=== PATIENT | female | born 2000 | race African-American/Black ===

== ENCOUNTER 2023-09-10 08:07 | Emergency (ER) | payer MEDICAID ==
[~2023-09-10] VITALS: Ht 162.6 cm; Wt 77.0 kg
[2023-09-10 08:18] VITALS: O2SAT 100
[2023-09-10] MEDS ORDERED: CEFTRIAXONE SODIUM 500 MG/VIAL IM ONE (08:45)
[2023-09-10 08:55] LABS: CLARITY URINE TURBID (CLEAR); COLOR URINE YELLOW (YELLOW); GLUCOSE URINE NEGATIVE (NEGATIVE); KETONES URINE NEGATIVE (NEGATIVE); LEUKOCYTE ESTERASE URINE 3+ (NEGATIVE); NITRITE URINE NEGATIVE (NEGATIVE); OCCULT BLOOD URINE NEGATIVE (NEGATIVE); PH URINE 5.5 (4.5-8.0); PROTEIN URINE TRACE (NEGATIVE); SPECIFIC GRAVITY URINE 1.028 (1.005-1.030)
[2023-09-10] MEDS ORDERED: IBUPROFEN 600MG TABLET PO ONE (09:00)
[2023-09-10 09:10] LABS: BASOPHILS % 0.1 % (0.0-2.0); EOSINOPHILS % 0.3 % (0.0-5.0); HEMATOCRIT. 35.3 % (36.0-48.0); HEMOGLOBIN. 11.6 g/dL (12.0-16.0); LYMPHOCYTES % 7.1 % (20.0-50.0); MEAN CORPUSCULAR HEMOGLOBIN 29.7 pg (28.0-32.0); MEAN CORPUSCULAR HGB CONC 32.7 g/dL (31.0-37.0); MEAN CORPUSCULAR VOLUME 90.6 fL (81.0-99.0); MEAN PLATELET VOLUME 7.8 fl (7.4-10.4); MONOCYTES % 6.8 % (2.0-8.0); NEUTROPHILS % 85.7 % (40.0-76.0); PLATELET 493 x1000/uL (130-400); RED CELL DISTRIBUTION WIDTH 14.2 % (11.6-14.6); WHITE BLOOD COUNT 17.6 x1000/uL (4.5-11.0)
[2023-09-10 09:18] LABS: CHLORIDE 106 mEq/L (98-107); INDEX HEMOLYSI 1 (1-3); INDEX ICTERIC 1 (1-4); INDEX LIPEMIC 1 (1-3); POTASSIUM 3.3 mEq/L (3.5-5.1); SODIUM 137 mEq/L (136-145)
[2023-09-10 09:20] LABS: BACTERIA URINE 4+; SQUAMOUS EPITHELIAL CELL URINE 3+ /lpf (RARE/1+); WBC URINE 25-50 /hpf (0-2); YEAST URINE NONE SEEN
[2023-09-10 09:22] LABS: HCG SCREEN NEGATIVE
[2023-09-10 10:06] LABS: ALANINE AMINOTRANSFERASE 33 IU/L (13-61); ALBUMIN 3.3 g/dL (3.4-5.0); ASPARTATE AMINOTRANSFERASE 23 IU/L (15-37); BILIRUBIN TOTAL 0.3 mg/dL (0.1-1.0); CARBON DIOXIDE 24 mEq/L (21-32); CREATININE 0.7 mg/dL (0.6-1.3); GLUCOSE 108 mg/dL (70-105); PROTEIN TOTAL 8.5 g/dL (6.0-8.3); UREA NITROGEN BLOOD 7 mg/dL (7-21)
[2023-09-10] MEDS ORDERED: IBUP-2029 MT (10:35)
[2023-09-10] MEDS ORDERED: DOXY100C5 MT (10:35)
[2023-09-10] MEDS ORDERED: CEPH500C2 MT (10:35)
[2023-09-10 11:16] VITALS: BP 124/75; PULSE 93; RESP 20; TEMP 98
== END 2023-09-10 11:17 | disposition home or self-care (01) ==
LOC: ER 08:18
DX: N30.00 Acute cystitis without hematuria (principal); A64 Unspecified sexually transmitted disease
CPT/HCPCS: 80053; 81003; 81025; 84703; 83690; 85025; 87086; 87077; 36415; 74176; 96372; 99285; J0696; Z7610